=== PATIENT | male | born 1985 | race Two or more races ===

== ENCOUNTER 2025-01-27 12:00 | Emergency (ER) | payer OTHER ==
[2025-01-27] MEDS: Diphtheria,Pertussis(Acell),Tetanus Vaccine 0.5 ML Syringe IM ONE (12:41)
[2025-01-27] MEDS: Lidocaine/Epineph/Tetracaine 3 ML Syringe TOP ONE (12:42)
[2025-01-27] MEDS: Ketorolac 60 MG/2 ML SDV IM ONE (12:42)
== END 2025-01-27 14:55 | disposition home or self-care (01) ==
LOC: MW.ED 12:00
DX: S67.193A Crushing injury of left middle finger, initial encounter (principal); S61.223A Laceration with foreign body of left middle finger without damage to nail, initial encounter; Z23 Encounter for immunization; F17.200 Nicotine dependence, unspecified, uncomplicated; W23.0XXA Caught, crushed, jammed, or pinched between moving objects, initial encounter
CPT/HCPCS: 12002; 73130; 90471; 90715; 96372; 99283; A9270; J0665; J0690; J1885; J2003; 99284